=== PATIENT | male | born 1985 | race Hispanic/Latino ===

== ENCOUNTER 2019-02-19 15:35 | Emergency (ER) | payer BC, OTHER ==
[2019-02-19] MEDS ORDERED: KETOROLAC TROMETHAMINE 60 MG/2 ML VIAL ONE (16:25)
== END 2019-02-19 17:07 | disposition home or self-care (01) ==
LOC: EDH 15:35
DX: M10.072 Idiopathic gout, left ankle and foot (principal); M10.9 Gout, unspecified; Z87.39 Personal history of other diseases of the musculoskeletal system and connective tissue
CPT/HCPCS: 96372; 99283; J1885

== ENCOUNTER 2022-05-17 10:06 | Emergency (ER) | payer OTHER ==
[~2022-05-17] VITALS: Ht 167.6 cm; Wt 111.1 kg
[2022-05-17] MEDS ORDERED: 0.9%NACL 1000ML 1,000 ML IV ONE (11:00)
[2022-05-17 11:29] LABS: BASOPHILS % (AUTO) 0.4 % (0.0-5.0); EOSINOPHILS % (AUTO) 1.3 % (0.0-8.0); HEMATOCRIT 45.2 % (42-54); LYMPHOCYTES % (AUTO) 13.2 % (21.0-51.0); MEAN CORPUSCULAR HGB CONC 34.1 g/dL (32.0-36.0); MEAN CORPUSCULAR VOLUME 85.1 fL (79-99); MONOCYTES % (AUTO) 6.5 % (3.0-13.0); NEUTROPHILS % (AUTO) 77.2 % (40.0-77.0); PLATELET COUNT (AUTO) 326 K/uL (130-400); RED BLOOD CELL COUNT(AUTO) 5.31 MIL/uL (4.50-6.20); RED CELL DISTRIBUTION WIDTH 11.9 % (11.0-15.5); WHITE BLOOD COUNT (AUTO) 15.3 K/uL (4.8-10.8)
[2022-05-17] MEDS ORDERED: ONDANSETRON 4MG INJ IVP ONE (11:30)
[2022-05-17] MEDS ORDERED: KETOROLAC 15MG/ML VIAL (15MG/ML) IV ONE (11:30)
[2022-05-17] MEDS ORDERED: MORPHINE 2 MG SYG IVP ONE (11:30)
[2022-05-17 11:38] LABS: POTASSIUM 3.9 mmol/L (3.5-5.1)
[2022-05-17 11:42] LABS: ALBUMIN 3.2 g/dL (3.5-5.0); TOTAL PROTEIN, SERUM 8.6 g/dL (6.0-8.3); URIC ACID 4.9 mg/dL (2.6-7.2)
[2022-05-17] MEDS ORDERED: CEFTRIAXONE 1G VIAL IVP ONE (12:30)
[2022-05-17 13:26] LABS: ERYTHROCYTE SEDIMENTATION RATE 62 MM/HR (0-15)
[2022-05-17 14:04] LABS: APPEARANCE,URINE CLEAR (CLEAR); BILIRUBIN,URINE 0.5 mg/dL (NEGATIVE); COLOR,URINE YELLOW (YELLOW); GLUCOSE, URINE (UA) NEGATIVE (NEGATIVE); KETONES,URINE NEGATIVE (NEGATIVE); LEUKOCYTE ESTERASE ,URINE NEGATIVE Leu/uL (NEGATIVE); NITRATE,URINE NEGATIVE (NEGATIVE); OCCULT BLOOD,URINE NEGATIVE (NEGATIVE); PH,URINE 6.5 (5.0-8.0); PROTEIN,URINE 100 mg/dL (NEGATIVE); UROBILINOGEN,URINE 12 mg/dL (0.2-1.0)
[2022-05-17 14:16] LABS: MUCUS,URINE RARE LPF (None Seen); SQUAMOUS EPITHELIAL CELL,UR RARE /HPF (0-2); YEAST,URINE BUDDING RARE /HPF (None Seen)
[2022-05-17] MEDS ORDERED: CLIN-141 PO (14:33)
[2022-05-17] MEDS ORDERED: IBUP-2070 PO (14:33)
[2022-05-17 14:39] VITALS: BP 146/62
== END 2022-05-17 14:40 | disposition home or self-care (01) ==
LOC: EDH 10:06
DX: L03.116 Cellulitis of left lower limb (principal)
CPT/HCPCS: 99285; 96374; 96375; 93971; 96361; 84550; 80053; 85025; 85651; 87040 ×2; 83605; 82010; 81001; 36415; 73630; J7030; J0696; J2405; J1885

== ENCOUNTER 2024-10-16 12:50 | Emergency (ER) | payer OTHER ==
[~2024-10-16] VITALS: Ht 167.6 cm; Wt 104.3 kg
[~2024-10-16 12:50] MED LIST: CLIN-141 PO; IBUP-2070 PO
[2024-10-16] MEDS: HYDROcodone/APAP 5/325 1 TAB TABLET PO ONE (13:11)
--- NOTE | 2024-10-16 13:19 | NUR ---
COLD PACK APPLIED TO LEFT KNEE
--- NOTE | 2024-10-16 14:39 | ERN ---
ED Note History of Present Illness Stated Complaint: LT KNEE PAIN Chief Complaint: Knee Injury/Swelling Time Seen by MD: 12:53 Time Seen by Midlevel: 12:58 Dictation: 39-year-old male with a past medical history coming in complaining of left knee pain for three days. No trauma, patient denies any spreading or any stepping wrong or any injuries. Denies any fevers, nausea vomiting diarrhea. No other complaints. 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/22 Past Medical History Past Medical History: No Pertinent History Surgical History: None Review of System Dictation Constitutional: Negative for fever,chills, and weight loss Eyes: Negative for injury, pain,redness, and discharge ENT: Negative for injury,pain or swelling Cardiovascular: Negative for chest pain, palpitations, and edema Respiratory: Negative for shortness of breath, cough, and wheezing, Abdomen/GI: Negative for abdominal pain, nausea, vomiting, diarrhea, and constipation Back: Negative for injury and pain : Negative for injury, bleeding and discharge MS/Extremity: Complaining of left knee pain Skin: Negative for rash, and discoloration Neuro: Negative for headache, weakness, numbness, tingling, and seizure Psych: Negative for suicide ideation, homicidal ideation, and hallucinations Review of Systems: was completed Initial Vital Sign VS Vital Signs Date Time Temp Pulse Resp B/P (MAP) Pulse Ox O2 Delivery O2 Flow Rate FiO2 10/16/24 12:52 98.6 78 18 134/89 98 Room Air Physical Exam Dictation General: awake, alert, NAD Head/Face: Normocephalic, atraumatic Eyes: PERRL, EOMI, vision at baseline ENT: oral cavity clear, TMs clear, no signs of infection Neck: Trachea midline, supple, no nuchal rigidity Cardiovascular: RRR, normal S1/S2, No MRGs, no JVD Respiratory: CTAB, no respiratory distress, No rales or wheezes Abdomen: Soft, non-tender, non-distended, normal bowel sounds, no guarding or rebound. Skin: Warm, dry, normal turgor, no rash MS/Extremity: Pulses equal, no cyanosis, neurovascular intact, FROM, no redness, no warmth, no streaking. No pain on palpation to the back of the knee and no palpable mass noted Neuro: COAx4, GCS 15, strength 5/5, CN 2-12 intact, normal cerebellar exam, normal gait, Psych: Normal behavior, mood, and affect normal Results (Laboratory/Radiology) X-RAY Comment: [facility] [id number] [place] [address] IMAGING REPORT Signed PATIENT: CHLOE CARSON MR#: [id number] : 1985 SEX: M AGE: 39 LOCATION: [facility] ORDER 1259 STATUS: REG ER REPORT#: [id number] SERVICE 1257 REASON: pain, swelling ORDERING PHYSICIAN: WILMAN RODRIGUEZ NP PROCEDURE: KNEE 3V LT - KNEE 3VWS LT EXAM: CR Left Knee, 3 View. CLINICAL HISTORY: pain, swelling COMPARISON: None provided. FINDINGS: BONES: No acute fracture or aggressive appearing osseous lesion. JOINTS: The joint spaces show no significant degenerative disease. Large suprapatellar left knee joint effusion. SOFT TISSUES: The soft tissues are unremarkable. IMPRESSION: 1. Large suprapatellar left knee joint effusion. /[place] DICTATED BY: MARY SWANN Jr., MD DATE: 10/16/241544 ELECTRONICALLY SIGNED BY: MARY SWANN Jr., MD DATE: 10/16/241544 ED Course ED Course Orders Procedure Category Date Status Time Knee 3vws Lt RAD 10/16/24 Resulted 12:57 Ketorolac PHA 10/16/24 Complete Tromethamine 15mg/Ml 12:57 Hydrocodone/Apap PHA 10/16/24 Complete 5/325 ([place] 5/325mg) 12:57 Current Medications Medications (Trade) Dose Ordered Sig/[place]las Route PRN Reason Start Time Stop Time Status Last Admin Dose Admin Acetaminophen/ Hydrocodone Bitart (NORco 5/325MG) 1 tab ONCE ONCE PO 10/16/24 12:57 10/16/24 13:00 DC 10/16/24 13:11 Ketorolac Tromethamine (toRADol) 15 mg ONCE ONCE IM 10/16/24 12:57 10/16/24 13:01 DC 10/16/24 13:16 Vital Signs Date Time Temp Pulse Resp B/P (MAP) Pulse Ox O2 Delivery O2 Flow Rate FiO2 10/16/24 12:52 98.6 78 18 134/89 98 Room Air Medical Decision Making MDM MDM: 39-year-old male with a past medical history coming in complaining of left knee pain for three days. No trauma, patient denies any spreading or any stepping wrong or any injuries. Denies any fevers, nausea vomiting diarrhea. No other complaints. X-ray of the knee shows prepatellar joint effusion. Zachariah bandage applied prior to discharge. Educated patient to follow up with PCP for further evaluation if you need to see an bone specialist. Patient verbalized u nderstanding, answered all questions. Differential diagnosis: Knee dislocation, knee she fracture, hairline fracture, Rationale: Tests considered and ordered secondary to shared decision making include: Previous outside records reviewed: Old ER visits. Risk of complication and/or morbidity or mortality of patient management: None Medications-Per medication reconciliation Need for hospitalization: Patient does not meet criteria for hospitalization. Need for emergency major/minor surgery: No There are no social concerns with this patient. Prescription drug management Prescriptions will include symptomatic care Patient's prior external medical records from other ER visits were reviewed by me as indicated. Prior testing and results from previous visits were reviewed. Prior tests were taken into account with medical decision making and resource utilization, independent historian/historians were used to obtain complete medical history. I independently interpreted the test that were performed, results were reviewed by me and considered findings on radiology if ordered. Medical management and examination interpretation discussions were had by me with other qualified healthcare professionals as indicated for the patient's care. DX & DISP Disposition: Discharge Departure Impression: Primary Impression: Knee pain, left Additional Impression: Knee effusion, left Condition: Stable Additional Instructions: Follow up with your primary doctor as you might need further evaluation by him and or a PCP. Referrals: BEE,DANNY (PCP) Time of Disposition: 14:47 I have reviewed the case, and I agree with, Diagnosis and Plan WILMAN RODRIGUEZ NP Oct 16, 2024 14:39
--- NOTE | 2024-10-16 14:46 | HMCIMG ---
EXAM: CR Left Knee, 3 View. CLINICAL HISTORY: pain, swelling COMPARISON: None provided. FINDINGS: BONES: No acute fracture or aggressive appearing osseous lesion. JOINTS: The joint spaces show no significant degenerative disease. Large suprapatellar left knee joint effusion. SOFT TISSUES: The soft tissues are unremarkable. IMPRESSION: 1. Large suprapatellar left knee joint effusion. /[place]
[2024-10-16 14:48] VITALS: BP 127/81; PULSE 76; RESP 18; TEMP 98.6; O2SAT 98
== END 2024-10-16 15:07 | disposition home or self-care (01) ==
LOC: EDH 12:50
DX: M25.562 Pain in left knee (principal); M25.462 Effusion, left knee
CPT/HCPCS: 99283; 73562; 96372; J1885